=== PATIENT | male | born 1965 | race Caucasian/White ===

== ENCOUNTER 2020-12-18 07:54 | Inpatient (IN) | payer OTHER ==
[~2020-12-18] VITALS: Ht 170.2 cm; Wt 123.9 kg
[~2020-12-18 07:54] MED LIST: ASPIRIN325 MG PO; CERTAGEN1 EACH PO; GLUCOSAMINE H1500 MG PO; HCTZ25 MG PO; LYSINE1000 MG PO; MOBIC15 MG PO; NEXIUM20 MG PO; PRINIVIL20 MG PO; REQUIP1 MG PO; VENTOLIN HFA IN18 GM INH; ZOLOFT25 MG PO
[2020-12-18 08:39] LABS: BASOPHIL 0.3 % (0-2); EOSINOPHIL 0.2 % (0-5); HCT 45.1 % (42.0-52.0); HGB 16.3 g/dl (13.2-18.0); LYMPHOCYTE 7.7 % (15-48); MCH 35.2 pg (25.0-31.0); MCHC 36.1 g/dL (32.0-36.0); MCV 97.4 fL (78.0-100.0); MONOCYTE 5.9 % (0-12); MPV 11.7 fL (6.0-9.5); NEUTROPHIL 85.6 % (41-80); NRBC 0; PLT 112 K/uL (150-400); RBC 4.63 M/uL (4.70-6.00); WBC 8.7 K/uL (4.0-10.5)
[2020-12-18 08:56] LABS: ALBUMIN 3.7 g/dL (3.4-5.0); BILIRUBIN - TOTAL 1.3 mg/dL (0.2-1.0); BUN/CREAT RATIO (CALC) 25.8 RATIO; CREATININE 0.89 mg/dL (0.67-1.17); GLOBULIN (CALCULATION) 3.6 g/dL; POTASSIUM 4.4 mmol/L (3.5-5.1); TOTAL PROTEIN 7.3 g/dL (6.4-8.2)
[2020-12-18 09:05] LABS: PRO-BNP 13 pg/mL (<125)
[2020-12-18 09:09] LABS: LACTIC ACID 3.2 mmol/L (0.4-1.9)
[2020-12-18 12:10] LABS: BILIRUBIN NEGATIVE (NEGATIVE); BLOOD NEGATIVE Ery/uL (NEGATIVE); CLARITY CLEAR (CLEAR); COLOR YELLOW (YELLOW); GLUCOSE (U) NORMAL (NORMAL); LEUKOCYTES NEGATIVE Leu/uL (NEGATIVE); PROTEIN NEGATIVE (NEGATIVE); UROBILINOGEN 0.2 mg/dL (0.2-1.0)
[2020-12-18 12:20] LABS: NITRITE NEGATIVE (NEGATIVE)
[2020-12-18] MEDS ORDERED: LIPITOR20 MG PO (15:48)
[2020-12-18] MEDS ORDERED: NORVASC2.5 MG PO (15:49)
--- NOTE | 2020-12-18 19:36 | NUR ---
NOTIFIED OF ANXIETY, SWEATY, ELEVATED HR, TACHYPNEA. HAS STATED DIFFERENT ALCOHOL AMOUNTS WITH VARIOUS STAFF. ATIVAN, PERCOCET, LOPRESSOR GIVEN. WILL TRANSFER PATIENT TO TCU BED 5. SISTER AT BS
[2020-12-19 04:48] LABS: BASOPHIL 0.3 % (0-2); EOSINOPHIL 0.2 % (0-5); HCT 40.5 % (42.0-52.0); HGB 13.8 g/dl (13.2-18.0); MCH 35.8 pg (25.0-31.0); MCHC 34.1 g/dL (32.0-36.0); MCV 104.9 fL (78.0-100.0); MONOCYTE 7.7 % (0-12); MPV 11.7 fL (6.0-9.5); NEUTROPHIL 83.4 % (41-80); NRBC 0; RBC 3.86 M/uL (4.70-6.00); RDW 12.6 % (11.5-14.0); WBC 12.2 K/uL (4.0-10.5)
[2020-12-19 04:55] LABS: INR 1.27 (0.9-1.2); PROTHROMBIN TIME 15.1 SECONDS (11.4-13.6)
[2020-12-19 05:00] LABS: PLT 85 K/uL (150-400)
[2020-12-19 05:11] LABS: BILIRUBIN - TOTAL 1.9 mg/dL (0.2-1.0); BUN/CREAT RATIO (CALC) 17.4 RATIO; CREATININE 2.3 mg/dL (0.67-1.17); GLOBULIN (CALCULATION) 3.3 g/dL; MAGNESIUM 1.5 mg/dL (1.8-2.4); POTASSIUM 4.8 mmol/L (3.5-5.1); TOTAL PROTEIN 6.3 g/dL (6.4-8.2)
--- NOTE | 2020-12-19 09:50 | NUR ---
PT. IS OBS. PLEASE CONSIDER FULL ADMIT OR D/C. THANKS
--- NOTE | 2020-12-19 12:09 | NUR ---
LAB CALLED TO GIVE RESULTS ON BLOOD CULTURES- POSITIVE BLOOD CULTURE, GRAM POSITIVE COCCI CLUSTERS DR. RIDDLE CALLED AND NOTIFIED OF RESULTS.
[2020-12-19 17:17] LABS: URINE CREATININE 110.73 mg/dL (29.00-226.00)
--- NOTE | 2020-12-20 02:40 | NUR ---
COWA SCORE OF 15 ASSESSED,
--- NOTE | 2020-12-20 03:22 | NUR ---
PT ANXIOUS AT TIMES AND CALLING OUT IN PAIN, CIWA SCORE ASSESSED AND ORDERED PROTOCOL FOLLOWED,
--- NOTE | 2020-12-20 03:30 | NUR ---
PT SPIKED TEMP AND PT ANXIOUS, PLEATING SUPERVISOR NOTIFIED OF TEMP SPIKE AND HR AT 120. PT SHALLOW BREATHING, WILL CONNTINUE TO MONITOR. SEPSIS PROTOCOL ORDERED. CIWA ASSESSMENT DONE
[2020-12-20 03:59] LABS: BASOPHIL 0.3 % (0-2); EOSINOPHIL 0.4 % (0-5); HGB 13.2 g/dl (13.2-18.0); LYMPHOCYTE 11.4 % (15-48); MCH 35.3 pg (25.0-31.0); MCHC 33.8 g/dL (32.0-36.0); MCV 104.3 fL (78.0-100.0); MONOCYTE 6.8 % (0-12); NEUTROPHIL 80.3 % (41-80); NRBC 0; RBC 3.74 M/uL (4.70-6.00); RDW 12.1 % (11.5-14.0); WBC 10.2 K/uL (4.0-10.5)
[2020-12-20 04:13] LABS: PLT 90 K/uL (150-400)
[2020-12-20 04:23] LABS: BILIRUBIN - TOTAL 1.4 mg/dL (0.2-1.0); CREATININE 1.31 mg/dL (0.67-1.17); GLOBULIN (CALCULATION) 3.9 g/dL; MAGNESIUM 1.7 mg/dL (1.8-2.4); POTASSIUM 4.8 mmol/L (3.5-5.1); TOTAL PROTEIN 6.9 g/dL (6.4-8.2)
--- NOTE | 2020-12-20 04:56 | NUR ---
CIWA SCORE OF 18 ASSESSED, PT ANXIUS AT THIS TIME PERSONAL VEHICLE ADVISOR AT BEDSIDE
[2020-12-20 05:01] LABS: LACTIC ACID 2.9 mmol/L (0.4-1.9)
--- NOTE | 2020-12-20 05:11 | NUR ---
PT ANXIOUS AND HAD INCREASED TEMP OF 103 FAREHEIT, SEPSIS PROTOCOL IMMEDIATELY STARTED, CIWA ASSESSED, CUSTOMER BUSINESS MANAGER NOTIFIED AND ORDERS PROVIDED. BLOOD CULTURES DRAWN, URINE AND SPUTUM AWAITING COLLECTION. WILL CONTINUE TO MONITOR
--- NOTE | 2020-12-20 06:00 | NUR ---
CIWA SCORE OF 16 ASSESED, PT TRANSFERED TO ICU FOR HIGHER LEVEL OF CARE ORDERED BY WHITE SUGAR PAN TANK OPERATOR, PT ANXIOUS AND WANTING UP OUT OF CHAIR/BED
--- NOTE | 2020-12-20 17:57 | NUR ---
FAMILY IS VERY WORRIED ABOUT GIVING PATIENT IV PAIN MEDS AND ATIVAN DUE TO ADICTION ISSUES WITH PATIENT. SPOKE WITH AND SISTER AT LENGTH ABOUT NEED FOR MEDS DUE TO INTENSE PAIN AND ALCOHOL WITHDRAWAL. SISTER ALSO RAISED QUESTIONS ABOUT PATIENT BEING TRANSFERRED TO ANOTHER HOSPITAL. TOLD DR TONY ABUT CONVERSATIONS WITH FAMILY. FAMILY FELT IF PATIENT WAS TRANSFERRED IT WOULD BE BETTER TO WAIT UNTIL AFTER ECHO TOMORROW.
[2020-12-20 20:59] LABS: AMPHETAMINES NEGATIVE (NEGATIVE); BARBITURATES NEGATIVE (NEGATIVE); ECSTASY (MDMA) NEGATIVE (NEGATIVE); MARIJUANA (THC) NEGATIVE (NEGATIVE); METHADONE NEGATIVE (NEGATIVE); OPIATES POSITIVE (NEGATIVE); OXYCODONE NEGATIVE (NEGATIVE)
[2020-12-20] MEDS ORDERED: NEXIUM20 MG PO (21:57)
--- NOTE | 2020-12-21 02:12 | NUR ---
LATE ENTRY 12/20/202099 CIWA SCORE OF 17, PO ATIVAN SCHEDULED AND GIVEN AT THIS TIME.
--- NOTE | 2020-12-21 02:46 | NUR ---
LATE ENTRY 12/20/20 2245 CIWA PERFORMED. FIRST DOSE OF PHENOBARBITOL GIVEN. SURVEY RODMAN TO DISCONTINUE ATIVAN, NO NEED TO REEVALUATE CIWA PER SURVEY RODMAN.
[2020-12-21 04:31] LABS: BASOPHIL 0.2 % (0-2); EOSINOPHIL 0.1 % (0-5); HCT 32.5 % (42.0-52.0); LYMPHOCYTE 7.3 % (15-48); MCH 35.4 pg (25.0-31.0); MCHC 33.8 g/dL (32.0-36.0); MCV 104.5 fL (78.0-100.0); MONOCYTE 8.1 % (0-12); MPV 11.9 fL (6.0-9.5); NEUTROPHIL 82.7 % (41-80); NRBC 0; RBC 3.11 M/uL (4.70-6.00); RDW 12.3 % (11.5-14.0); WBC 8.2 K/uL (4.0-10.5)
[2020-12-21 04:32] LABS: PLT 84 K/uL (150-400)
[2020-12-21 04:55] LABS: ALBUMIN 2.4 g/dL (3.4-5.0); BILIRUBIN - TOTAL 1.3 mg/dL (0.2-1.0); BUN/CREAT RATIO (CALC) 31.6 RATIO; CREATININE 0.98 mg/dL (0.67-1.17); GLOBULIN (CALCULATION) 3.5 g/dL; MAGNESIUM 1.9 mg/dL (1.8-2.4); POTASSIUM 3.9 mmol/L (3.5-5.1); TOTAL PROTEIN 5.9 g/dL (6.4-8.2)
--- NOTE | 2020-12-21 07:50 | NUR ---
DR. FORD NOTIFIED OF THIS LICENSED SALES PRODUCER THAT PT APPEARS IN RESP. DISTRESS TACHYPNEIC 35-40'S, AUDIBLE WHEEZING, GRUNTING, ABDOMINAL BREATHING, SHALLOW. SMALL AMOUNT TORRES/BROWN SPUTUM EXPECTORATED. ALL VSS & O2 SATS MID 90'S ON 3 L/MIN & STAY LOW 90'S ON ROOM AIR. PT BECOMES VERY RESTLESS W/ MOVEMENTS THAT INCREASE RIB FX PAIN/COUGHING. MD TO ORDER NEB TX'S & ADDITIONAL DOSE OF BUMEX. TO ALSO CHANGE PAIN MEDICATION TO CONTROL PAIN BETTER TO IMPROVE RESP STATUS. MD TO COME ASSESS SOON. WILL CONTINUE TO MONITOR CLOSELY. PT AT BEDSIDE.
--- NOTE | 2020-12-21 10:18 | NUR ---
12/21/20 Mr. Kyle lives at home with his spouse. He was independent in the home and community prior to admission. 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
[2020-12-21 18:51] LABS: BUN/CREAT RATIO (CALC) 29.9 RATIO; CREATININE 1.07 mg/dL (0.67-1.17); POTASSIUM 4.2 mmol/L (3.5-5.1)
--- NOTE | 2020-12-22 13:02 | NUR ---
12/22/20 Patient was unable to participate in a social assessment on 12/21/20. He was transferred to [facility] on the evening of 12/21/20.
== END 2020-12-21 19:25 | disposition other institution (70) | DRG 871 ==
LOC: FER 07:54 → FMS 13:02 → FTCU 18:48 → FICU 12-20 06:19
PROVIDERS: Emergency Medicine; Nurse Practitioner; Nurse Practitioner Family; ADMIT Internal Medicine
PROC: HZ2ZZZZ Detoxification Services for Substance Abuse Treatment (ICD-10-PCS; principal; 2020-12-20)
DX: A41.02 Sepsis due to Methicillin resistant Staphylococcus aureus (principal); J18.9 Pneumonia, unspecified organism; M84.48XA Pathological fracture, other site, initial encounter for fracture; F10.139 Alcohol abuse with withdrawal, unspecified; N17.9 Acute kidney failure, unspecified; K70.0 Alcoholic fatty liver; D69.6 Thrombocytopenia, unspecified; E87.70 Fluid overload, unspecified; Z20.822 Contact with and (suspected) exposure to COVID-19; F11.11 Opioid abuse, in remission; I10 Essential (primary) hypertension; G25.81 Restless legs syndrome; K21.9 Gastro-esophageal reflux disease without esophagitis; K70.10 Alcoholic hepatitis without ascites; E55.9 Vitamin D deficiency, unspecified; Z90.49 Acquired absence of other specified parts of digestive tract; Z88.0 Allergy status to penicillin; Z98.890 Other specified postprocedural states; Z79.899 Other long term (current) drug therapy
CPT/HCPCS: 36415; 36600; 71045; 71260; 80048; 80053; 80305; 81003; 82550; 82570; 82803; 83605; 83690; 83735; 83880; 84300; 84439; 84443; 84484; 85025; 85610; 87040; 87070; 87077; 87088; 87186; 87205; 93005; 94640; 94660; 94667; G0378; J0696; J1170; J1650; J1885; J1956; J2060; J2405; J2560; J3370; J3411; J3475; J7030; J7040; Q9967; U0002